=== PATIENT | male | born 1980 | race Hispanic/Latino ===

== ENCOUNTER 2018-06-17 16:39 | Emergency (ER) | payer SELFPAY ==
[2018-06-17 16:42] VITALS: BMI 34.4
[2018-06-17] MEDS ORDERED: Sodium Chloride 0.9% 1,000 ML IV STA (17:15)
[2018-06-17 17:23] LABS: BASO % 0.1 % (0.0-2.0); EOS % 0.2 % (0.0-4.0); HEMOGLOBIN 15.4 g/dL (12.0-18.0); LYMPH # 0.8 K/uL (1.0-4.3); LYMPH % 4.4 % (20.0-40.0); MEAN CELL VOLUME 92.7 fl (80.0-94.0); MEAN CORPUSCULAR HEMOGLOBIN 30.9 pg (27.0-31.0); MEAN CORPUSCULAR HGB CONC 33.3 g/dL (33.0-37.0); MEAN PLATELET VOLUME 7.8 fl (7.2-11.7); MONO # 0.8 K/uL (0.0-0.8); MONO % 4.3 % (0.0-10.0); NEUT # 16.3 K/uL (1.8-7.0); PLATELET COUNT 267 K/uL (130-400); RBC 4.98 Mil/uL (4.40-5.90); RED CELL DISTRIBUTION WIDTH 13.4 % (11.5-14.5); WHITE BLOOD COUNT 17.9 K/uL (4.8-10.8)
--- NOTE | 2018-06-17 17:27 | ED PDOC ---
HPI: Psych/Substance Abuse Time Seen by Provider: 06/17/18 16:48 Chief Complaint (Nursing): Substance Abuse Chief Complaint (Provider): Opiate and coccaine abuse History Per: Patient, EMS History/Exam Limitations: no limitations Onset/Duration Of Symptoms: Days (today) Additional Complaint(s): Pt. used two bags of heroine and coccaine. Was found passed out in his car and police gave him nasal narcan. Woke up after and has been communicating since. Denies any suicidal or homicidal thoughts. No other drugs. No other meds. No pain, weakness, chest pain, dyspnea, headaches, dizziness, dysuria. abd pain, headaches. Past Medical History Reviewed: Nursing Documentation, Vital Signs Vital Signs: Last Vital Signs Temp 98.8 F 06/17/18 16:41 Pulse 123 H 06/17/18 17:06 Resp 19 06/17/18 17:06 BP 118/65 06/17/18 17:06 Pulse Ox 95 06/17/18 16:41 - Medical History PMH: No Chronic Diseases - Surgical History Surgical History: No Surg Hx - Family History Family History: States: Unknown Family Hx - Social History Alcohol: None Drugs: Cannabis, Opiates - Allergies Allergies/Adverse Reactions: Allergies Allergy/AdvReac Type Severity Reaction Status Date / Time No Known Allergies Allergy Verified 06/17/18 16:54 Review of Systems ROS Statement: Except As Marked, All Systems Reviewed And Found Negative Physical Exam - Reviewed Nursing Documentation Reviewed: Yes Vital Signs Reviewed: Yes - Physical Exam Appears: Positive for: Non-toxic, No Acute Distress Head Exam: Positive for: ATRAUMATIC, NORMAL INSPECTION, NORMOCEPHALIC Skin: Positive for: Normal Color, Warm, DRY Eye Exam: Positive for: EOMI, Normal appearance, PERRL ENT: Positive for: Normal ENT Inspection Neck: Positive for: Normal, Painless ROM Cardiovascular/Chest: Positive for: Regular Rate, Rhythm Respiratory: Positive for: CNT, Normal Breath Sounds Gastrointestinal/Abdominal: Positive for: Normal Exam, Soft. Negative for: Tenderness Back: Positive for: Normal Inspection. Negative for: L CVA Tenderness, R CVA Tenderness Extremity: Positive for: Normal ROM. 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 Negative for: Motor/Sensory Deficits - Laboratory Results Result Diagrams: 06/17/18 17:19 06/17/18 17:19 Interpretation Of Abn Labs: 0.168 trop; 296 glucose - ECG ECG: Positive for: Interpreted By Me, Viewed By Me ECG Rhythm: Positive for: Normal QRS, Normal ST Segment, Sinus Tachycardia O2 Sat by Pulse Oximetry: 95 Pulse Ox Interpretation: Normal - Progress ED Course And Treament: 1728: Pulsox 92 with 3L nasal. Will continue monitoring. 1808: Pt. more awake. Aware of troponin elevation. Does not want to be admitted. Will repeat troponin in 4 hrs and continue monitoring pt. due to opiate and coccaine use. ASA to be given. Dr. Richardson made aware of presentation, findings, and reviewed ekg by text. States if pt. doesn't want admit, will see repeat trop and cpk and asa is ok. 1906: Dr. Spivey to fu on labs and dispo. Disposition - Clinical Impression Clinical Impression: Elevated troponin, Cocaine abuse, Opiate abuse, continuous - Disposition Disposition Time: 19:08 Condition: FAIR Patient Signed Over To: Armando Spivey
[2018-06-17 17:38] LABS: ALB/GLOB RATIO 1.4 (1.0-2.1); ALBUMIN 4.6 g/dL (3.5-5.0); ALT/SGPT 36 U/L (21-72); AST/SGOT 43 U/L (17-59); BLOOD UREA NITROGEN 15 mg/dl (9-20); CALCIUM 8.7 mg/dL (8.4-10.2); GFR NON-AFRICAN AMERICAN > 60
[2018-06-17 18:22] VITALS: O2SAT 95
--- NOTE | 2018-06-17 19:42 | ED PDOC ---
- Laboratory Results Result Diagrams: 06/17/18 17:19 06/17/18 17:19 - ECG O2 Sat by Pulse Oximetry: 95 (RA) Pulse Ox Interpretation: Normal Medical Decision Making Medical Decision Making: Time: 19:00 Patient care was endorsed by Dr. Berman to Dr. Spivey pending repeat labs and reevaluation. Time: 20:45 Patient is awake, alert and oriented x3. Patient declines any further treatment in the ED and has decided to sign out against medical advice. Diagnosis include Opioid abuse, elevated troponin and cocaine abuse. Leaving Against Medical Advice (AMA): This patient is choosing to leave against medical advice. The EP has personally explained to the pt that choosing to do so may result in permanent bodily harm or . The EP discussed at great length that without further evaluation and monitoring there may be unforeseen circumstances and/or deterioration causing permanent bodily harm or as a result of their choice. The pt verbalized these risks back to the physician in laymans terms. The pt is alert, oriented, and shows the mental capacity to make clear decisions regarding the pts health care at this time. The pt continues to wish to leave against medical advice. In light of the pts decision to leave AMA, follow-up has been arranged and the pt is aware of the importance of following up as instructed. The pt has been advised that they should return to the ED immediately if they change their mind at any time, or if thier condition begins to change or worsen in any way. Scribe Attestation: Documented by Dima Craig, acting as a scribe for Armando Spivey MD. Provider Scribe Attestation: All medical record entries made by the Scribe were at my direction and personally dictated by me. I have reviewed the chart and agree that the record accurately reflects my personal performance of the history, physical exam, medical decision making, and the department course for this patient. I have also personally directed, reviewed, and agree with the discharge instructions and disposition. Disposition - Clinical Impression Clinical Impression: Elevated troponin, Cocaine abuse, Opiate or related narcotic overdose - POA Present On Arrival: None - Disposition Disposition: AGAINST MEDICAL ADVICE Disposition Time: 20:45 Condition: FAIR Prescriptions: Naloxone HCl [Narcan] 4 mg NS ONCE PRN #1 spray PRN Reason: opiate overdose Instructions: Cocaine Use Disorder, Narcotic Overdose , Leaving Against Medical Advice Forms: [employer] (Martiniquais)
[2018-06-17 19:58] LABS: BANDS 3 % (0-2); EOSINOPHIL 1 % (0-7); LYMPHOCYTE 5 % (20-50); MONOCYTE 2 % (0-10); NEUTROPHIL 89 % (42-75); PLATELET ESTIMATE NORMAL (NORMAL); TOTAL CELLS COUNTED 100
[2018-06-18 01:31] VITALS: BP 130/68; PULSE 96; RESP 16; TEMP 98.9
--- NOTE | 2018-06-18 02:54 | CARD ---
APPROVED REPORT Date of service: 06/17/2018 EKG Measurement Heart [id number] <Conclusion> Sinus tachycardia Borderline left ventricular hypertrophy Nonspecific ST abnormality Abnormal ECG
--- NOTE | 2018-06-18 08:27 | RAD ---
Date of service: 06/17/2018 HISTORY: COCCAINE ABUSE COMPARISON: No prior. FINDINGS: LUNGS: Diffuse bilateral infiltrates right greater than PLEURA: No significant pleural effusion identified, no pneumothorax apparent. CARDIOVASCULAR: No atherosclerotic calcification present Heart size is upper limits of normal/borderline enlarged. OSSEOUS STRUCTURES: No significant abnormalities. VISUALIZED UPPER ABDOMEN: Normal. OTHER FINDINGS: None. IMPRESSION: Diffuse bilateral infiltrates right greater than left
== END 2018-06-17 20:58 | disposition left against medical advice (07) ==
LOC: H.ER 16:39
DX: R79.89 Other specified abnormal findings of blood chemistry (principal); F14.10 Cocaine abuse, uncomplicated; F11.10 Opioid abuse, uncomplicated; T40.601A Poisoning by unspecified narcotics, accidental (unintentional), initial encounter
CPT/HCPCS: 71045; 80053; 82948; 84484; 85025; 93005; 99285; G0480; J7030